=== PATIENT | male | born 1940 | race Caucasian/White ===

== ENCOUNTER → 2018-09-18 | Outpatient (CLI) | payer MEDICARE, OTHER ==
[~2018-09-18] MED LIST: BP MED
[2018-09-20 15:16] LABS: Stool Occult Bld Immuno 1 Positive (NEGATIVE); Stool Occult Bld Immuno 2 Positive (NEGATIVE); Stool Occult Bld Immuno 3 Positive (NEGATIVE)
== END | disposition home or self-care (01) ==
LOC: LAB EV 07:28 → EDSTATUS 09-19 14:39
PROVIDERS: Nurse Practitioner Family
DX: D64.9 Anemia, unspecified (principal)
CPT/HCPCS: G0328

== ENCOUNTER 2019-10-12 09:30 | Emergency (ER) | payer MEDICARE, OTHER ==
[~2019-10-12] VITALS: Ht 185.4 cm; Wt 95.2 kg
[2019-10-12 10:11] LABS: BASOPHILS ABSOLUTE AUTO 0.02 K/mm3 (0.00-0.23); BASOPHILS PERCENT AUTO 0 % (0-2); EOSINOPHILS ABSOLUTE AUTO 0.03 K/mm3 (0.00-0.68); EOSINOPHILS PERCENT AUTO 0 % (0-6); IMMATURE GRAN ABSOLUTE AUTO 0.05 K/mm3 (0.00-0.10); IMMATURE GRAN PERCENT AUTO 1 % (0-1); LYMPHOCYTES ABSOLUTE AUTO 0.75 K/mm3 (0.84-5.20); LYMPHOCYTES PERCENT AUTO 11 % (21-46); MONOCYTES ABSOLUTE AUTO 1.68 K/mm3 (0.16-1.47); MONOCYTES PERCENT AUTO 24 % (4-13); Mean Corpuscular HGB 24.5 pg (26.0-34.0); Mean Corpuscular HGB Conc 28.2 g/dL (31.5-36.5); Mean Corpuscular Volume 87 fL (80-100); Mean Platelet Volume 10.5 fL (9.1-12.4); NEUTROPHILS ABSOLUTE AUTO 4.38 K/mm3 (1.96-9.15); NEUTROPHILS PERCENT AUTO 63 % (41-73); NRBC ABSOLUTE 0.43 K/mm3 (0.00-0.02); NRBC Auto 6.2 /100 WBC (0.0-0.2); Platelet Count 325 K/mm3 (150-400); RDW Coefficient Variation 19.9 % (11.7-14.2); RDW Standard Deviation 63.1 fL (35.1-46.3); Red Blood Cell Count 1.88 M/mm3 (4.30-5.90); White Blood Cell Count 6.91 K/mm3 (4.00-11.30)
[2019-10-12 10:19] LABS: Hematocrit 16.3 % (37.0-53.0); Hemoglobin 4.6 g/dL (13.5-17.5)
[2019-10-12 10:32] LABS: Alanine Aminotransfer (ALT/SGP 215 U/L (12-78); Albumin, Blood 3.2 g/dL (3.4-5.0); Albumin/Globulin Ratio 0.8 (0.8-1.8); Alk Phos 102 U/L (50-136); Anion Gap 8 mmol/L (6-16); Aspartate Aminotrans (AST/SGOT 243 U/L (12-37); Blood Urea Nitrogen 31 mg/dL (8-24); Bun/Creatinine Ratio 31.2 (12.0-20.0); CO2, Blood 27 mmol/L (21-32); Calcium, Blood 8.5 mg/dL (8.5-10.1); Chloride, Blood 105 mmol/L (98-108); Creatinine, Blood 0.99 mg/dL (0.60-1.20); Globulin, Blood 3.9 g/dL (2.2-4.0); Glomerular Filtration Rate >60 (60-); Glucose, Blood 111 mg/dL (70-99); Potassium, Blood 3.5 mmol/L (3.5-5.5); Sodium, Blood 140 mmol/L (136-145); Total Protein, Blood 7.1 g/dL (6.4-8.2); Troponin I 0.022 ng/mL (0.000-0.040)
[2019-10-12] MEDS ORDERED: FUROSEMIDE40 MG PO (11:33)
[2019-10-12] MEDS ORDERED: ELIQUIS5 M3 PO (11:33)
[2019-10-12] MEDS ORDERED: Potassium Chlo20 ME1 PO (11:33)
[2019-10-12] MEDS ORDERED: ATORVASTATIN CA40 M1 PO (11:34)
[2019-10-12] MEDS ORDERED: METOPROLOL TART25 MG PO (11:34)
[2019-10-12] MEDS ORDERED: Hair, Skin & N1 EACH PO (11:35)
== END 2019-10-12 17:02 | disposition home or self-care (01) ==
LOC: ER 09:30
PROVIDERS: Emergency Medicine
DX: K57.90 Diverticulosis of intestine, part unspecified, without perforation or abscess without bleeding (principal); D64.9 Anemia, unspecified; Z88.0 Allergy status to penicillin; I11.0 Hypertensive heart disease with heart failure; I50.9 Heart failure, unspecified; Z79.899 Other long term (current) drug therapy; Z86.73 Personal history of transient ischemic attack (TIA), and cerebral infarction without residual deficits
CPT/HCPCS: 36415; 71046; 74177; 80053; 83880; 84484; 85025; 86850; 86900; 86901; 86923; 93005; 93010; J7030; P9016; Q9967

== ENCOUNTER 2019-11-17 10:57 | Inpatient (IN) | payer MEDICARE, OTHER ==
[~2019-11-17] VITALS: Ht 185.4 cm; Wt 97.4 kg
[~2019-11-17 10:57] MED LIST changes: +ATORVASTATIN CA40 M1 PO; +ELIQUIS5 M3 PO; +FUROSEMIDE40 MG PO; +Hair, Skin & N1 EACH PO; +METOPROLOL TART25 MG PO; +Potassium Chlo20 ME1 PO
[2019-11-17 11:46] LABS: BASOPHILS ABSOLUTE AUTO 0.01 K/mm3 (0.00-0.23); BASOPHILS PERCENT AUTO 0 % (0-2); EOSINOPHILS ABSOLUTE AUTO 0.01 K/mm3 (0.00-0.68); EOSINOPHILS PERCENT AUTO 0 % (0-6); IMMATURE GRAN ABSOLUTE AUTO 0.07 K/mm3 (0.00-0.10); IMMATURE GRAN PERCENT AUTO 1 % (0-1); LYMPHOCYTES ABSOLUTE AUTO 0.77 K/mm3 (0.84-5.20); LYMPHOCYTES PERCENT AUTO 11 % (21-46); MONOCYTES ABSOLUTE AUTO 1.04 K/mm3 (0.16-1.47); MONOCYTES PERCENT AUTO 14 % (4-13); Mean Corpuscular HGB 21.8 pg (26.0-34.0); Mean Corpuscular HGB Conc 26.6 g/dL (31.5-36.5); Mean Corpuscular Volume 82 fL (80-100); Mean Platelet Volume 9.8 fL (9.1-12.4); NEUTROPHILS ABSOLUTE AUTO 5.34 K/mm3 (1.96-9.15); NEUTROPHILS PERCENT AUTO 74 % (41-73); NRBC ABSOLUTE 0.35 K/mm3 (0.00-0.02); NRBC Auto 4.8 /100 WBC (0.0-0.2); Platelet Count 308 K/mm3 (150-400); RDW Coefficient Variation 21.9 % (11.7-14.2); RDW Standard Deviation 64.6 fL (35.1-46.3); Red Blood Cell Count 1.88 M/mm3 (4.30-5.90); White Blood Cell Count 7.24 K/mm3 (4.00-11.30)
[2019-11-17 11:49] LABS: Hematocrit 15.4 % (37.0-53.0)
[2019-11-17 11:50] LABS: Hemoglobin 4.1 g/dL (13.5-17.5)
[2019-11-17 11:53] LABS: PCO2 Arterial 40.3 mmHg (35-45); PO2 Arterial 103 mmHg (80-100); pH Blood Arterial 7.51 (7.35-7.45)
[2019-11-17 11:55] LABS: Alanine Aminotransfer (ALT/SGP 255 U/L (12-78); Albumin, Blood 2.9 g/dL (3.4-5.0); Albumin/Globulin Ratio 0.8 (0.8-1.8); Alk Phos 113 U/L (50-136); Anion Gap 8 mmol/L (6-16); Aspartate Aminotrans (AST/SGOT 202 U/L (12-37); Bilirubin, Total 2.2 mg/dL (0.1-1.0); Blood Urea Nitrogen 25 mg/dL (8-24); Bun/Creatinine Ratio 25.2 (12.0-20.0); CO2, Blood 31 mmol/L (21-32); Calcium, Blood 8.6 mg/dL (8.5-10.1); Chloride, Blood 108 mmol/L (98-108); Creatinine, Blood 0.99 mg/dL (0.60-1.20); Globulin, Blood 3.5 g/dL (2.2-4.0); Glomerular Filtration Rate >60 (60-); Glucose, Blood 107 mg/dL (70-99); Potassium, Blood 2.9 mmol/L (3.5-5.5); Sodium, Blood 147 mmol/L (136-145); Total Protein, Blood 6.4 g/dL (6.4-8.2); Troponin I 0.086 ng/mL (0.000-0.040)
[2019-11-17 11:56] LABS: International Normalized Ratio 1.51; Prothrombin Time Results 15.8 Sec (9.7-11.5)
[2019-11-17 13:22] LABS: Adenovirus Not Detected (NOT DETECT); Coronavirus 229E Not Detected (NOT DETECT); Coronavirus HKU1 Not Detected (NOT DETECT); Coronavirus NL63 Not Detected (NOT DETECT)
[2019-11-17 13:23] LABS: Bordetella pertussis Not Detected (NOT DETECT); Chlamydophila pneumoniae Not Detected (NOT DETECT); Coronavirus OC43 Not Detected (NOT DETECT); Human Metapneumovirus Not Detected (NOT DETECT); Human Rhinovirus/Enterovirus Not Detected (NOT DETECT); Influenza A/2009-H1 Not Detected (NOT DETECT); Influenza A/H1 Not Detected (NOT DETECT); Influenza A/H3 Not Detected (NOT DETECT); Influenza B Not Detected (NOT DETECT); Mycoplasma pneumoniae Not Detected (NOT DETECT); Parainfluenza Virus 1 Not Detected (NOT DETECT); Parainfluenza Virus 2 Not Detected (NOT DETECT); Parainfluenza Virus 3 Not Detected (NOT DETECT); Parainfluenza Virus 4 Not Detected (NOT DETECT); Respiratory Syncytial Virus Not Detected (NOT DETECT)
[2019-11-17 14:16] LABS: IMMATURE RETIC FRACTION 50.6 % (2.3-16.0); RETIC HGB EQUIVALENT 17.6 pg (28.20-36.60); RETICULOCYTE ABSOLUTE 0.02 M/mm3 (0.0200-0.1100); RETICULOCYTE COUNT PERCENT 1.07 % (0.50-2.50)
--- NOTE | 2019-11-17 18:49 | NUR ---
1715... PT ADMITTED TO ICU-2 VIA STRETCHER WITH MOD SOB, PALE, BUT VS ADIQUATE. PT IS ON 5L NC AND TOLERATING WELL. DR PABLO NOT CONSULTED BUT HAD TALKED WITH DR KEANE AND WILL HOLD KCL FOR NOW AND [facility] AND H/H TO FOLLOW AFTER 2 UNITS OF PRBC'S ARE COMPLETE. PT HAS HAD NO STOOLING AND DENIES N/V. BLOOD IS INFUSING AND NS AT 75ML STARTED. A-FIB RVR AT 130-155 RATE AND PT DENIES C.P. OR DISTRESS.
--- NOTE | 2019-11-17 19:00 | NUR ---
ASSUMED CARE NOTE: ASSUMED CARE OF PT @ 1900, RECEVIED REPORT FROM MAX ARREDONDO. PT IS ALERT AND ORIENTEDX2. PT IS A POOR HISTORIAN, IS UNABLE TO RECALL RECENT EVENTS. PT IS ON 2L OF O2 VIA NC, SPO2 ABOVE 90%. LUNG SOUNDS COARSE T/O, PT HAS A PRODUCTIVE COUGH, YELLOW THIN SPUTUM. PT IS IN AFIB WITH HR BETWEEN, 110-130. PT DENIES ANY CHEST PAIN OR SOB AT THIS TIME. PT IS AFEBRILE. ACTIVE BOWEL TONES HEARD IN ALL QUADRANTS. ATTENDS IN [place]. BLE +4 EDEMA. WILL CONTINUE TO MONITOR PT T/O SHIFT. BED AT LOWEST LEVEL, AND CALL LIGHT WITHIN REACH
[2019-11-17 21:30] LABS: Hematocrit 19.2 % (37.0-53.0)
[2019-11-17 21:32] LABS: Hemoglobin 5.5 g/dL (13.5-17.5)
[2019-11-17 21:46] LABS: Anion Gap 5 mmol/L (6-16); Blood Urea Nitrogen 23 mg/dL (8-24); Bun/Creatinine Ratio 25.1 (12.0-20.0); CO2, Blood 32 mmol/L (21-32); Calcium, Blood 8.4 mg/dL (8.5-10.1); Chloride, Blood 111 mmol/L (98-108); Creatinine, Blood 0.92 mg/dL (0.60-1.20); Glomerular Filtration Rate >60 (60-); Glucose, Blood 107 mg/dL (70-99); Potassium, Blood 3.5 mmol/L (3.5-5.5); Sodium, Blood 148 mmol/L (136-145)
[2019-11-17 21:48] LABS: Percent Saturation 50.7 % (20.0-50.0)
--- NOTE | 2019-11-17 23:01 | NUR ---
UPDATE: SPOKE TO SHREYA, HOSPITALIST, REGARDING IV FLUIDS AND COARSE LUNGS. ORDERS TO DC FLUIDS AND TO GIVE LASIX ORDERED.
[2019-11-17 23:08] LABS: Stool Occult Blood Guaiac 1 Pos (Neg)
[2019-11-18 03:40] LABS: BASOPHILS ABSOLUTE AUTO 0.02 K/mm3 (0.00-0.23); BASOPHILS PERCENT AUTO 0 % (0-2); EOSINOPHILS PERCENT AUTO 0 % (0-6); Hematocrit 25.8 % (37.0-53.0); Hemoglobin 7.8 g/dL (13.5-17.5); IMMATURE GRAN ABSOLUTE AUTO 0.08 K/mm3 (0.00-0.10); IMMATURE GRAN PERCENT AUTO 1 % (0-1); LYMPHOCYTES ABSOLUTE AUTO 0.34 K/mm3 (0.84-5.20); LYMPHOCYTES PERCENT AUTO 4 % (21-46); MONOCYTES ABSOLUTE AUTO 0.17 K/mm3 (0.16-1.47); MONOCYTES PERCENT AUTO 2 % (4-13); Mean Corpuscular HGB 25.7 pg (26.0-34.0); Mean Corpuscular HGB Conc 30.2 g/dL (31.5-36.5); Mean Corpuscular Volume 85 fL (80-100); Mean Platelet Volume 10.5 fL (9.1-12.4); NEUTROPHILS ABSOLUTE AUTO 8.83 K/mm3 (1.96-9.15); NEUTROPHILS PERCENT AUTO 94 % (41-73); NRBC ABSOLUTE 0.27 K/mm3 (0.00-0.02); NRBC Auto 2.9 /100 WBC (0.0-0.2); Platelet Count 272 K/mm3 (150-400); RDW Coefficient Variation 18.5 % (11.7-14.2); RDW Standard Deviation 55.8 fL (35.1-46.3); Red Blood Cell Count 3.04 M/mm3 (4.30-5.90); White Blood Cell Count 9.44 K/mm3 (4.00-11.30)
--- NOTE | 2019-11-18 03:55 | NUR ---
UPDATE: ADMINISTERED LASIX, CONDOM CATH IN PLACE. BLOOD PRESSURE STABLE. PT ENCOURAGED TO SLEEP. BED AT LOWEST LEVEL, CALL LIGHT WITHIN REACH.
[2019-11-18 04:02] LABS: Alanine Aminotransfer (ALT/SGP 231 U/L (12-78); Albumin/Globulin Ratio 0.8 (0.8-1.8); Alk Phos 121 U/L (50-136); Anion Gap 4 mmol/L (6-16); Aspartate Aminotrans (AST/SGOT 165 U/L (12-37); Bilirubin, Total 4.4 mg/dL (0.1-1.0); Blood Urea Nitrogen 24 mg/dL (8-24); Bun/Creatinine Ratio 26.3 (12.0-20.0); CO2, Blood 33 mmol/L (21-32); Calcium, Blood 8.5 mg/dL (8.5-10.1); Chloride, Blood 110 mmol/L (98-108); Creatinine, Blood 0.91 mg/dL (0.60-1.20); Globulin, Blood 3.6 g/dL (2.2-4.0); Glomerular Filtration Rate >60 (60-); Glucose, Blood 120 mg/dL (70-99); Potassium, Blood 3.8 mmol/L (3.5-5.5); Sodium, Blood 147 mmol/L (136-145); Total Protein, Blood 6.6 g/dL (6.4-8.2)
--- NOTE | 2019-11-18 06:28 | NUR ---
SHIFT SUMMARY: SEE PREVIOUS NOTES. PT CONTINUES TO BE ALERT AND ORIENTEDX2. PT WAS ON RA FOR 30MINTUES, HOWEVER PT'S SPO2 DECREASED TO 86% PT WAS THEN PLACED BACK ON 2L OF O2 VIA NC, SPO2 MAINTAINED ABOVE 90%. VITALS STABLE, PT IS LUNG SOUNDS CONTINUE TO BE COARSE. PT HAD GOOD URINE OUTPUT, 1000MLS, AND TWO LARGE INCONTINENT VOIDS. PT CONDOM CATH WAS REPLACED, TO MONITOR I&O, URINE IS EDWINA. WILL CONTINUE TO MONITOR PT UNTIL REPORT IS GIVEN TO ONCOMING SHIFT.
[2019-11-18 09:28] LABS: Hematocrit 27.8 % (37.0-53.0); Hemoglobin 8.4 g/dL (13.5-17.5)
--- NOTE | 2019-11-18 10:31 | NUR ---
Echocardiogram completed.
--- NOTE | 2019-11-18 11:16 | NUR ---
0800 NOTE... PT ALERT AND COOP, DIRECTABLE BUT IS CONFUSED. CONDOM CATH PLACED AND URINE ORANGE NOTED. PT DENIES SOB BUT IS ON O2 AT 3L AND HAS L BASE CRACKLES. VS NOTED AND SEE LATER VS, DR KEANE AWARE. REPORT CALLED TO FAMILY AT APPROX 1100.
--- NOTE | 2019-11-18 13:42 | NUR ---
SEE VS. PT HAS BEEN SL HYPOTENSIVE AND IS SLOWLY COMMING UP NOTED AFTER ALBUMIN. PT REMAINS ASYMPOTMTIC.
[2019-11-18 15:20] LABS: Hematocrit 25.9 % (37.0-53.0); Hemoglobin 7.7 g/dL (13.5-17.5)
--- NOTE | 2019-11-18 18:28 | NUR ---
PT HAS BEEN AWAKE MOST OF THE DAY AND REMAINS DIRECTABLE AND MARGINALLY CONFUSED AT TIMES. PT L FA IV HAS INFILTRATED AND WAS DIRECTED THAT NOC WILL START NEW SITE. PT CONDOM CATH REMAINS INTACT AND OUTPUT NOTED. PT STATUS OF DNR AND PCU ARE NOTED.
--- NOTE | 2019-11-18 20:00 | NUR ---
ASSUMED CARE OF PT AT 1915. REPORT RECEIVED AT BEDSIDE. PT NOTED TO BE CONFUSED. IS ABLE TO MAINTAIN CONVERSATIONS ABOUT HIS CAREER CHOICE, TIME. WHEN ASKED IF HE KNEW WHERE HE IS AT THIS TIME, PT THOUGHT HE WAS IN [place]. WHEN INSTRUCTED HE WAS IN [place], HE STATES, "OH! THAT'S RIGHT". WHEN ASKED IF HE KNEW WHICH CITY IN [place] HE IS IN, HE COULD NOT RECALL. BED ALARM ON FOR PT SAFETY. WILL REVIEW CHART AND PLAN OF CARE FOR THIS PT.
--- NOTE | 2019-11-18 23:00 | NUR ---
PT REMAINS > 90 PERCENT SATURATED WHILE ON 3-4 LITERS PER NASAL CANNULA. PT AWAKENS AT TIMES CONFUSED. PULLS AT LINES AND CONDOM CATHETER. NEEDS TO BE REDIRECTED. BELIEVES THAT HE IS IN [place]. NEEDS TO BE REORIENTED THAT HE IS IN THE HOSPITAL.
[2019-11-19 03:51] LABS: BASOPHILS ABSOLUTE AUTO 0.02 K/mm3 (0.00-0.23); BASOPHILS PERCENT AUTO 0 % (0-2); EOSINOPHILS PERCENT AUTO 0 % (0-6); Hematocrit 25.4 % (37.0-53.0); Hemoglobin 7.7 g/dL (13.5-17.5); IMMATURE GRAN ABSOLUTE AUTO 0.15 K/mm3 (0.00-0.10); IMMATURE GRAN PERCENT AUTO 1 % (0-1); LYMPHOCYTES ABSOLUTE AUTO 0.56 K/mm3 (0.84-5.20); LYMPHOCYTES PERCENT AUTO 4 % (21-46); MONOCYTES ABSOLUTE AUTO 1.04 K/mm3 (0.16-1.47); MONOCYTES PERCENT AUTO 8 % (4-13); Mean Corpuscular HGB 25.7 pg (26.0-34.0); Mean Corpuscular HGB Conc 30.3 g/dL (31.5-36.5); Mean Corpuscular Volume 85 fL (80-100); Mean Platelet Volume 10.1 fL (9.1-12.4); NEUTROPHILS ABSOLUTE AUTO 11.56 K/mm3 (1.96-9.15); NEUTROPHILS PERCENT AUTO 87 % (41-73); NRBC ABSOLUTE 0.32 K/mm3 (0.00-0.02); NRBC Auto 2.4 /100 WBC (0.0-0.2); Platelet Count 212 K/mm3 (150-400); RDW Coefficient Variation 19.3 % (11.7-14.2); RDW Standard Deviation 58.7 fL (35.1-46.3); White Blood Cell Count 13.33 K/mm3 (4.00-11.30)
[2019-11-19 04:23] LABS: Alanine Aminotransfer (ALT/SGP 151 U/L (12-78); Alk Phos 106 U/L (50-136); Anion Gap 4 mmol/L (6-16); Aspartate Aminotrans (AST/SGOT 80 U/L (12-37); Bilirubin, Total 2.6 mg/dL (0.1-1.0); Blood Urea Nitrogen 27 mg/dL (8-24); Bun/Creatinine Ratio 29.3 (12.0-20.0); CO2, Blood 35 mmol/L (21-32); Calcium, Blood 8.2 mg/dL (8.5-10.1); Chloride, Blood 107 mmol/L (98-108); Creatinine, Blood 0.92 mg/dL (0.60-1.20); Glomerular Filtration Rate >60 (60-); Glucose, Blood 110 mg/dL (70-99); Potassium, Blood 2.8 mmol/L (3.5-5.5); Sodium, Blood 146 mmol/L (136-145)
--- NOTE | 2019-11-19 06:26 | NUR ---
PT HAS PULLED OFF HIS OXYGEN MULTIPLE TIMES THIS NIGHT. INCONTINENT TO URINE. NO S/S GI BLEED NOTED. AM LABS REVIEW REVEALS NO DROP IN H/H FROM PREVIOUS. BED ALARM HAS BEEN TURNED ON BED FOR PT SAFETY. WILL CONTINUE TO MONITOR PT, AND WILL REPORT OFF TO ONCOMING RN.
--- NOTE | 2019-11-19 08:49 | NUR ---
CARE ASSUMED CARE AND REPORT ASSUMED FROM ALBAN SANTANA. PT AWAKE AND SITTING UP IN BED. DENIES PAIN. HE IS CONFUSED, ONLY ALERT TO SELF, AND REPEATEDLY STATING HE WANTS TO LEAVE THIS PLACE. CURRENTLY IN AFIB, HR 90S. LUNG SOUNDS COARSE AND WET THROUGHOUT, PT HAS PRODUCTIVE COUGH WITH STRONG COUGH RELFEX. TOLERATING 2L NC, SPO2 94%. POTASSIUM REPLACEMENT INFUSING. BP WNL. PT REFUSED BREAKFAST THIS AM. DNR BAND ON WRIST. SON UPDATED. WILL CONTINUE TO MONITOR.
[2019-11-19 11:31] LABS: Source, Urine Catheter
--- NOTE | 2019-11-19 11:38 | NUR ---
REASSESSMENT GREEN CATHETER INSERTED SINCE PT HAS TO VOID OFTEN AND QUICKLY BECOMES SHORT OF BREATH WITH ANY EXERTION. SECOND DOSE OF LASIX 20 MG IVP GIVEN. VSS. REMAINS IN NSR, HR 90-110. BP WNL. SITTING UP WATCHING TV AND DRINKING MILKSHAKE. WILL CONTINUE TO MONITOR.
[2019-11-19 11:45] LABS: Appearance, Urine Clear (Clear); Bilirubin, Urine Neg (Neg); Blood, Urine 2+ (Neg); Color, Urine Yellow (P-Yellow); Glucose Qualitative, Urine Neg (Neg); Ketones, Urine Neg (Neg); Leukocyte Esterase, Urine Neg (Neg); Nitrite, Urine Neg (Neg); Protein, Urine Neg (Neg); Urobilinogen, Urine NORM (Normal)
--- NOTE | 2019-11-19 12:03 | NUR ---
REASSESSMENT HEPARIN GTT STARTED AND BOLUS GIVEN WITH INFUSION. VSS. L GROIN SITE STABLE, CLEAN AND DRY. PT SITTING UP 30 DEGREES. AWAITING LUNCH TRAY. DAUGHTER UPDATED ON PHONE. WILL CONTINUE TO MONITOR.
[2019-11-19 12:36] LABS: White Blood Cells, Urine 0-2 /hpf (0-5)
[2019-11-19 12:37] LABS: Bacteria Not Seen /hpf; Squamous Epithelial Cells Not Seen /hpf (Few)
--- NOTE | 2019-11-19 13:10 | NUR ---
UPDATE ON RED TAG STUDY PT REQUIRED TO LAY FLAT FOR AT LEAST 1 HOUR DURING RED TAG STUDY. DUE TO FLUID STATUS AND SOB, PT UNABLE TO LAY BELOW 15 DEGREES FOR MORE THAN FEW MINUTES. LUNG SOUNDS COARSE AND WET THROUGHOUT WITH AUDIBLE GURGLING SOUNDS. DUE TO RISK OF RESP DISTRESS AND BEING THAT PT DNR, PT WILL NOT BE ABLE TO SUSTAIN LYING FLAT FOR 1 HOUR. DISCUSSED WITH MD ARANDA; CURRENT PLAN IS TO PERFORM STUDY WHEN ABLE; NO FURTHER ORDERS. WILL NOTIFY MD TINOCO.
--- NOTE | 2019-11-19 16:49 | NUR ---
REASSESSMENT PT WAXES AND WANES WITH EPISODES OF RESTLESSNESS VERSUS SLEEPING. NO S/S PAIN. CURRENTLY 3L NC. LUNG SOUNDS REMAIN COARSE AND WET THROUGHOUT WITH PRODUCTIVE COUGH. PT HAS DARK DARDEN SPUTUM. AFEBRILE. REMAINS IN AFIB. WILL CONTINUE TO MONITOR.
--- NOTE | 2019-11-19 18:37 | NUR ---
SHIFT SUMMARY UNABLE TO COMPLETE RED TAG STUDY DURING SHIFT DUE TO INABILITY TO LAY PT FLAT FOR AN HOUR. PT DIDNT EAT MUCH BUT DID AGREE TO EAT SOME DINNER TONGIHT. HE RECEIVED BEDBATH AND LINEN CHANGE, HAD LARGE BOWEL MOVEMENT AND THEN SAT UP NI CHAIR FOR AWHILE. HE THEN GOT UP AND OUT OF BED AND USED BEDSIDE COMMODE AGAIN. PT WAS ABLE TO STAND AND AMBULATE WITH 1 PERSON ASSIST. BOWEL MOVEMENTS WERE LOOSE, LIQUIDY AND BLACK/BROWN IN COLOR; OLD APPEARING BLOOD. BP WNL THROUGHOUT SHIFT. PT AFEBRILE. HE IS NOW ATTEMPTING TO SLEEP IN BED. WILL GIVE BEDSIDE, HANDOFF REPORT TO NOC RN.
--- NOTE | 2019-11-19 20:40 | NUR ---
ASSUMED PT CARE FROM MAX WONG AT 1900 PT RESTING IN BED. ALERT AND ORIENTED TO SELF AND PLACE; ABLE TO FOLLOW SIMPLE COMMANDS; HOWEVER PT IS VERY CONFUSED AND FORGETFUL AT BASELINE. VERY IMPULSIVE. DOES NOT USE CALL LIGHT FOR ASSIST. HIGH FALL RISK; BED ALARM IN PLACE. PT REQUIRES PROMPT ASSISTANCE WHEN GETTING UP PT GENERALLY HAS TO USE THE COMMODE TO HAVE A BM. PT HAS BEEN HAVING FREQUENT, LOOSE BM'S TODAY PER REPORT. PT HAS BEEN RECEIVING STOOL SOFTENERS THE PAST TWO DAYS; HELD TONIGHTS DOSE. PT IS CURRENTLY ON 7L OF OXYGEN VIA NC WITH BIOX MID 90'S. HOWEVER, PT IS VERY RESTLESS AND CONTINUES TO PULL OFF LINES/CORDS AND HEART MONITOR. THEREFORE, WILL CONTINUE TO MONITOR OXYGEN STATUS AND TITRATE ACCORDINGLY. AT CHANGE OF SHIFT PT WAS ON 4L VIA NC; HOWEVER, PT IS ALSO A MOUTH BREATHER. LUNG SOUNDS ARE VERY TIGHT/DIMINISHED T/O. DRY, NON-PRODUCTIVE COUGH. PT HAS BEEN AFIB WITH RVR AND OCCASIONAL PVC'S NOTED; HR FLUCTUATES FROM 110'S-130'S AND UP TO 150'S-160'S WITH EXERTION. PT BECOMES VERY SOB WITH MINIMAL EXERTION. STANDBY ASSIST TO BSC FOR SAFETY. WILL CONTINUE FREQUENT VISUAL CHECKS FOR SAFETY.
--- NOTE | 2019-11-20 00:25 | NUR ---
REASSESSMENT PT CONTINUES TO BE RESTLESS AND ATTEMPTING TO GET OUT OF BED. BILATERAL SOFT WRIST RESTRAINTS APPLIED AROUND 0 D/T PT PULLING OFF HEART MONITOR AND OXYGEN. CALL OUT TO DR. TITUS IN REGARDS FOR A SLEEP AID PT CONTINUES TO GET OUT OF BED AND REMAINS RESTLESS. NEW ORDERS FOR HALIDOL 2-3MG IV Q6PRN
[2019-11-20 03:07] LABS: HBSAG SCREEN Negative (Negative); HEP A AB, IGM Negative (Negative); HEP B CORE AB, IGM Negative (Negative); HEP C VIRUS AB <0.1 (0.0-0.9)
[2019-11-20 03:55] LABS: BASOPHILS ABSOLUTE AUTO 0.04 K/mm3 (0.00-0.23); BASOPHILS PERCENT AUTO 0 % (0-2); EOSINOPHILS ABSOLUTE AUTO 0.02 K/mm3 (0.00-0.68); EOSINOPHILS PERCENT AUTO 0 % (0-6); Hemoglobin 8.4 g/dL (13.5-17.5); IMMATURE GRAN PERCENT AUTO 1 % (0-1); LYMPHOCYTES PERCENT AUTO 6 % (21-46); MONOCYTES ABSOLUTE AUTO 1.28 K/mm3 (0.16-1.47); MONOCYTES PERCENT AUTO 8 % (4-13); Mean Corpuscular HGB 25.2 pg (26.0-34.0); Mean Corpuscular Volume 87 fL (80-100); Mean Platelet Volume 10.1 fL (9.1-12.4); NEUTROPHILS PERCENT AUTO 85 % (41-73); NRBC ABSOLUTE 0.47 K/mm3 (0.00-0.02); NRBC Auto 2.8 /100 WBC (0.0-0.2); Platelet Count 196 K/mm3 (150-400); RDW Standard Deviation 62.3 fL (35.1-46.3); Red Blood Cell Count 3.33 M/mm3 (4.30-5.90); White Blood Cell Count 16.84 K/mm3 (4.00-11.30)
[2019-11-20 04:23] LABS: Alanine Aminotransfer (ALT/SGP 132 U/L (12-78); Albumin, Blood 2.9 g/dL (3.4-5.0); Albumin/Globulin Ratio 0.9 (0.8-1.8); Alk Phos 118 U/L (50-136); Anion Gap 4 mmol/L (6-16); Aspartate Aminotrans (AST/SGOT 67 U/L (12-37); Bilirubin, Total 1.8 mg/dL (0.1-1.0); Blood Urea Nitrogen 18 mg/dL (8-24); Bun/Creatinine Ratio 22.9 (12.0-20.0); CO2, Blood 39 mmol/L (21-32); Calcium, Blood 8.2 mg/dL (8.5-10.1); Chloride, Blood 104 mmol/L (98-108); Creatinine, Blood 0.79 mg/dL (0.60-1.20); Globulin, Blood 3.2 g/dL (2.2-4.0); Glomerular Filtration Rate >60 (60-); Glucose, Blood 98 mg/dL (70-99); Potassium, Blood 2.5 mmol/L (3.5-5.5); Sodium, Blood 147 mmol/L (136-145); Total Protein, Blood 6.1 g/dL (6.4-8.2)
--- NOTE | 2019-11-20 05:50 | NUR ---
END OF SHIFT SUMMARY PT HAS REMAINED CONFUSED AND FORGETFUL WITH REPEATED ATTEMPTS TO GET OUT OF BED AND PULL OFF VITAL LINES/CORDS. PT HAS BEEN MEDICATED WITH A TOTAL OF 3MG OF HALDOL, WHICH HAS BEEN EFFECTIVE FOR PT. BILATERAL SOFT WRIST RESTRAINTS REMAIN IN PLACE TO PREVENT PT FROM PULLING OFF LINES/CORDS. PT HAS BEEN IN AFIB; HR IS CURRENTLY 70-80'S WHILE SLEEPING. OXYGEN AT 5L VIA NC; WITH DRY, NON-PRODUCTIVE COUGH. LUNG SOUNDS REMAIN TIGHT/DIMINISHED T/O ALL LOBES. GREEN CATHETER REMAINS PATENT AND DRAINING DARK EDWINA COLORED URINE TO GRAVITY. POTASSIUM LOW THIS MORNING AT 2.5; ORDERS TO REPLACE WITH 40MEQ'S IV X1. WILL PASS ON TO DAY RN TO ADDRESS WITH HOSPITALIST IN REGARDS TO LASIX 40MG BID WITH NO POTASSIUM REPLACEMENT ORDERED. CALL LIGHT WITHIN REACH. BED ALARM REMAINS SET D/T HIGH FALL RISK. WILL CONTINUE TO MONITOR UNTIL REPORT IS HANDED OFF TO ONCOMING RN.
--- NOTE | 2019-11-20 11:40 | NUR ---
Pal Care case conference with RN, , son, Care Managers - I was notified by nursing that family would like comfort care and hospice to be arranged. I contacted son, Bhavik, who I have been speaking with this week re: goals of care and advanced care planning. POLST form was completed 11/18/19, based on an unsigned POLST that pt had done recently and planned to take to new PCP at [facility]. Bhavik (son) reports that his is on the phone with [facility] hospice, requesting their services. Son states he and and his live in pt's home. I reviewed the intermittent visit nature of hospice services, need for family or hired caregivers, hospice services, benefits and covered items. Son verbalizes good understanding of hospice services and also states they plan to hire a friend who works as a cg to assist and for respite. He reports he is awaiting a call from a dc demand planner to assist with hospice set up. I called Dr Rosas to report family request and my conversation with family. plans to call son. Report given to Anitra MCCORD & order placed for soc services to assist with d/c planning. Pt has asked staff repeatedly to let him go home. He is restless in bed. As I was leaving the unit, RN in room with pt and found that he had pulled his iv line out. Will remain available to assist with advanced care planning and s/s management.
--- NOTE | 2019-11-20 12:00 | NUR ---
CALL PLACED TO DR BOURGEOIS Pt pulled out peripheral IV. This RN placed call to Dr Bourgeois because family would like for pt to transition to comfort care. Palliative care RN, Edith, has been talking to provider and family. Dr Bourgeois stated he will call family to touch base together they will reach a decision if pt is transitioning to comfort care or not. Provider aware that IV meds cannot be given at this time. Provider states not to start IV until he speaks to the pt's family.
--- NOTE | 2019-11-20 13:00 | NUR ---
UPDATE Provider in unit to assess patient. Provider spoke to family and plan is to continue with gentle medical care at this time. Plan to place IV.
[2019-11-20 13:14] LABS: Albumin, Blood 2.7 g/dL (3.4-5.0); Anion Gap 2 mmol/L (6-16); Blood Urea Nitrogen 15 mg/dL (8-24); Bun/Creatinine Ratio 25.1 (12.0-20.0); CO2, Blood 39 mmol/L (21-32); Calcium, Blood 8.3 mg/dL (8.5-10.1); Chloride, Blood 107 mmol/L (98-108); Glomerular Filtration Rate >60 (60-); Glucose, Blood 98 mg/dL (70-99); Magnesium, Blood 1.8 mg/dL (1.6-2.4); Phosphorus, Blood 1.6 mg/dL (2.5-4.9); Potassium, Blood 2.9 mmol/L (3.5-5.5); Sodium, Blood 148 mmol/L (136-145)
--- NOTE | 2019-11-20 17:23 | NUR ---
SUMMARY Pt is medical floor status with telemetry. Pt A&O x 2. Answers questions appropriately. Follows commands. Pt on 4 LPM NC. Pt has loose, productive cough with copious amounts of thick green sputum. Lungs dim t/o on auscultation. Pt's pending COVID-19 test had an insufficient specimen. New nasopharyngeal specimen sent for COVID-19. Myers catheter in place for strict measurement of fluid intake and output. Pt sitting up in chair at this time. Will continue to closely monitor until care handoff and bedside report with oncoming RN.
--- NOTE | 2019-11-20 22:54 | NUR ---
ASSUMED PT CARE FROM MAX GALVEZ AT 1915 PT REMAINS CONFUSED AND FORGETFUL. NOT IMPULSIVE; HOWEVER, BED ALARM REMAINS ON FOR SAFETY. PT IS ABLE TO FOLLOW COMMANDS AND IS VERY PLEASANT AND COOPERATIVE WITH CARES. REMAINS ON ENHANCED ISOLATION PRECAUTIONS FOR RULE OUT COVID. PT IS CURRENTLY ON 4L OF OXYGEN VIA NC; WITH BIOX MID 90'S. PT REMAINS AFIB WITH HR 90-120'S. BP'S STABLE; SEE FLOWSHEET. PT C/O 04/28 BACK PAIN; MEDICATED WITH TYLENOL PER ORDERS AND REPOSITIONED. ASSISTED WITH FLUTTER VALVE TO HELP BRING UP SECRETIONS; PT EFFECTIVELY COUGHED UP THICK, GREEN MUCUS PLUG. PT IS CURRENTLY SLEEPING. WILL CONTINUE FREQUENT VISUAL CHECKS FOR SAFETY.
[2019-11-21 03:35] LABS: BASOPHILS ABSOLUTE AUTO 0.02 K/mm3 (0.00-0.23); BASOPHILS PERCENT AUTO 0 % (0-2); EOSINOPHILS ABSOLUTE AUTO 0.12 K/mm3 (0.00-0.68); EOSINOPHILS PERCENT AUTO 1 % (0-6); Hematocrit 25.6 % (37.0-53.0); Hemoglobin 7.4 g/dL (13.5-17.5); IMMATURE GRAN ABSOLUTE AUTO 0.37 K/mm3 (0.00-0.10); IMMATURE GRAN PERCENT AUTO 4 % (0-1); LYMPHOCYTES ABSOLUTE AUTO 0.73 K/mm3 (0.84-5.20); LYMPHOCYTES PERCENT AUTO 9 % (21-46); MONOCYTES ABSOLUTE AUTO 0.74 K/mm3 (0.16-1.47); MONOCYTES PERCENT AUTO 9 % (4-13); Mean Corpuscular HGB 25.5 pg (26.0-34.0); Mean Corpuscular HGB Conc 28.9 g/dL (31.5-36.5); Mean Corpuscular Volume 88 fL (80-100); Mean Platelet Volume 10.8 fL (9.1-12.4); NEUTROPHILS ABSOLUTE AUTO 6.43 K/mm3 (1.96-9.15); NEUTROPHILS PERCENT AUTO 77 % (41-73); NRBC ABSOLUTE 0.53 K/mm3 (0.00-0.02); NRBC Auto 6.3 /100 WBC (0.0-0.2); Platelet Count 168 K/mm3 (150-400); RDW Standard Deviation 66.5 fL (35.1-46.3); White Blood Cell Count 8.41 K/mm3 (4.00-11.30)
[2019-11-21 03:56] LABS: Alanine Aminotransfer (ALT/SGP 100 U/L (12-78); Albumin, Blood 2.4 g/dL (3.4-5.0); Albumin/Globulin Ratio 0.8 (0.8-1.8); Alk Phos 108 U/L (50-136); Anion Gap 2 mmol/L (6-16); Aspartate Aminotrans (AST/SGOT 50 U/L (12-37); Bilirubin, Total 1.1 mg/dL (0.1-1.0); Blood Urea Nitrogen 17 mg/dL (8-24); Bun/Creatinine Ratio 18.9 (12.0-20.0); CO2, Blood 39 mmol/L (21-32); Calcium, Blood 8.2 mg/dL (8.5-10.1); Chloride, Blood 107 mmol/L (98-108); Globulin, Blood 2.9 g/dL (2.2-4.0); Glomerular Filtration Rate >60 (60-); Glucose, Blood 103 mg/dL (70-99); Magnesium, Blood 1.8 mg/dL (1.6-2.4); Sodium, Blood 148 mmol/L (136-145); Total Protein, Blood 5.3 g/dL (6.4-8.2); Troponin I 0.046 ng/mL (0.000-0.040)
--- NOTE | 2019-11-21 05:05 | NUR ---
END OF SHIFT SUMMARY PT HAS SLEPT MOST OF SHIFT; WAKENS EASILY. PT REMAINS CONFUSED AND FORGETFUL; HOWEVER, VERY PLEASANT AND COOPERATIVE WITH CARES. NOT PULLING AT LINES/CORDS THIS SHIFT. OXYGEN IS AT 4L VIA NC. PT HAS NONPRODUCTIVE COUGH UNLESS HE USES HIS FLUTTER VALVE IN WHICH HE CAN PRODUCE MODERATE AMOUNTS OF THICK GREEN SPUTUM. LUNG SOUNDS VARY FROM COARSE TO DIMINISHED T/O. PT HAS BEEN IN AFIB WITH HR 80-120'S. GREEN CATH REMAINS PATENT AND DRAINING DARK, YELLOW URINE TO GRAVITY. PT ABLE TO REPOSITION SELF IN BED. WILL CONTINUE TO MONITOR UNTIL REPORT IS HANDED OFF TO ONCOMING RN.
--- NOTE | 2019-11-21 08:58 | NUR ---
DR BOURGEOIS IN TO SEE PT Discussed drop in hemoglobin. Discussed absence of melena or hematochezia. Discussed BID suppository. Provider stated this may be discontinued. Discussed hypokalemia. Provider states plan to adjust medications. Provider states for lopes catheter to be removed today.
--- NOTE | 2019-11-21 18:24 | NUR ---
SUMMARY Pt A&O x 2 for entire shift. Pt knows year but does not know exact month or date. Pt follows directions well. Verbalizes needs. Answers all questions appropriately. Pt OOB for each meal. Pt has excellent appetite. Pt mobilizes with one person assist. Calls appropriately. Bed and tab alarms utilized but pt has not gotten up without staff present in room. Pt on 2 LPM NC for entire shift. Pt medical floor status with telemetry. Pt has not been OOB this shift. Myers catheter removed. Pt has not voided urine since. Powerglide to JENNIFER for meds and fluids. COVID specimen has not yet resulted. Pt remains in droplet isolation. Will continue to closely monitor pt until care handoff and bedside report with oncoming RN.
--- NOTE | 2019-11-21 19:28 | NUR ---
ASSUMED PT CARE FROM MAX GALVEZ AT 1900 PT RESTING IN BED. 3L OF OXYGEN VIA NC. ALERT AND ABLE TO MAKE NEEDS KNOWN; REMAINS FORGETFUL AT TIMES. HOWEVER, REMAIN APPROPRIATE WITH ASKING FOR ASSIST AND NOT BEING IMPULSIVE GETTING OUT OF BED. GREEN CATHETER RECENTLY REMOVED BY DAY RN. PT HAS VOIDED X1; CONTINENT; HOWEVER, PT UNABLE TO WAIT FOR PPE DONNING AND VOIDED IN ATTENDS. URINAL PLACED AT BEDSIDE. WHEEZING NOTED ON EXPIRATION T/O ALL LOBES. FLUTTER VALVE EXERCISE PERFORMED AND PT ABLE TO PRODUCE A MODERATE AMOUNT OF THICK GREEN/DARDEN SPUTUM. PT REMAINS IN AFIB WITH HR 90-110'S; INCREASES WITH EXERTION. NS WITH KCL 20MEQ INFUSING AT 50MLS/HR VIA POWERGLIDE TO [place]. EDEMA HAS DECREASED SINCE YESTERDAY; +1 TO BILATERAL ANKLES/FEET. DEPENDENT TO BUE'S. CALL LIGHT WITHIN REACH. BEDSIDE REPORT GIVEN.
--- NOTE | 2019-11-21 21:14 | NUR ---
SCD'S PLACED PT IS NO LONGER HIGH OF A RISK FOR FALLS D/T PT NOT BEING IMPULSIVE AND TRYING TO EXIT BED. THEREFORE, PLACED SCD'S R/T PROPHYLAXIS. ALSO PLACED CONDOM CATH D/T PT BEING INCONTINENT WITH FREQUENT URINATION SECONDARY TO LASIX. NONETHELESS, PT REMAINS ON ENHANCED PRECAUTIONS SECONDARY TO R/O COVID; THEREFORE, PLACING CONDOM CATH WILL MINIMIZE DONNING AND DOFFING OF PPE, WELL FREQUENT EXPOSURE.
[2019-11-22 04:25] LABS: Hematocrit 27.1 % (37.0-53.0); Mean Corpuscular HGB 26.1 pg (26.0-34.0); Mean Corpuscular HGB Conc 29.5 g/dL (31.5-36.5); Mean Corpuscular Volume 88 fL (80-100); Mean Platelet Volume 9.9 fL (9.1-12.4); NRBC ABSOLUTE 0.88 K/mm3 (0.00-0.02); NRBC Auto 9.3 /100 WBC (0.0-0.2); Platelet Count 155 K/mm3 (150-400); RDW Standard Deviation 68.2 fL (35.1-46.3); Red Blood Cell Count 3.07 M/mm3 (4.30-5.90); White Blood Cell Count 9.48 K/mm3 (4.00-11.30)
[2019-11-22 04:43] LABS: Alanine Aminotransfer (ALT/SGP 91 U/L (12-78); Albumin, Blood 2.5 g/dL (3.4-5.0); Albumin/Globulin Ratio 0.9 (0.8-1.8); Alk Phos 116 U/L (50-136); Anion Gap 2 mmol/L (6-16); Aspartate Aminotrans (AST/SGOT 59 U/L (12-37); Bilirubin, Total 1.1 mg/dL (0.1-1.0); Blood Urea Nitrogen 11 mg/dL (8-24); Bun/Creatinine Ratio 15.3 (12.0-20.0); CO2, Blood 39 mmol/L (21-32); Calcium, Blood 8.2 mg/dL (8.5-10.1); Chloride, Blood 100 mmol/L (98-108); Creatinine, Blood 0.72 mg/dL (0.60-1.20); Globulin, Blood 2.9 g/dL (2.2-4.0); Glomerular Filtration Rate >60 (60-); Glucose, Blood 88 mg/dL (70-99); Magnesium, Blood 1.6 mg/dL (1.6-2.4); Potassium, Blood 3.3 mmol/L (3.5-5.5); Sodium, Blood 141 mmol/L (136-145); Total Protein, Blood 5.4 g/dL (6.4-8.2)
[2019-11-22 05:01] LABS: BAND PERCENT MAN 13 % (0-8); BASOPHILS PERCENT MAN 0 % (0-2); EOSINOPHILS ABSOLUTE MAN 0.09 K/mm3 (0.00-0.68); EOSINOPHILS PERCENT MAN 1 % (0-6); LYMPHOCYTES ABSOLUTE MAN 0.75 K/mm3 (0.84-5.20); LYMPHOCYTES PERCENT MAN 8 % (21-46); METAMYELOCYTE ABSOLUTE MAN 0.09 K/mm3 (0.00-0.00); METAMYELOCYTE PERCENT MAN 1 % (0-0); MONOCYTES ABSOLUTE MAN 0.47 K/mm3 (0.16-1.47); MONOCYTES PERCENT MAN 5 % (4-13); MYELOCYTE ABSOLUTE MAN 0.09 K/mm3 (0.00-0.00); MYELOCYTE PERCENT MAN 1 % (0-0); NEUTROPHILS ABSOLUTE MAN 7.96 K/mm3 (1.96-9.15); SEG NEUTROPHILS PERCENT MAN 71 % (41-73); TOTAL CELLS COUNTED 100
--- NOTE | 2019-11-22 05:26 | NUR ---
END OF SHIFT SUMMARY PT HAS BEEN AWAKE MOST OF SHIFT. ALERT AND ABLE TO COMMUNICATE NEEDS; HOWEVER, REMAINS CONFUSED AND FORGETFUL. PLACED CONDOM CATH AT BEGINNING OF SHIFT THAT STAYED ON UP UNTIL PT HAD A BLOW OUT OF A BOWEL MOVEMENT IN WHICH CONDOM CATH REQUIRED CHANGING OUT. PT HAS PROGRESSIVELY BECOME MORE CONFUSED AND DELIRIOUS THE NIGHT PROGRESSED; PULLED OFF NEWLY PLACED CONDOM CATH. ATTEMPTING TO PULL OFF BIOX PROBE AND HEART MONITOR CABLES AGAIN. REDIRECTED PT BY STATING HE NEEDED TO GET SOME SLEEP HE WAS BECOMING MORE CONFUSED. PT AGREED. REMOVED SCD'S AND TURNED OFF TELEVISION IN ORDER TO DECREASE STIMULI. PT IS NOW ASLEEP AND APPEARS TO BE RESTING COMFORTABLY. OXYGEN IS AT 2L VIA NC. PT HAS HAD TWO LOOSE STOOLS THIS SHIFT; XL IN SIZE, SOFT AND PASTY WITH A RUST COLOR. WHEN ASKED IF PT'S STOMACH WAS UPSET, HE WAS UNABLE TO ANSWER. JUST STATED HE GENERALLY DIDN'T FEEL WELL. ATTENDS MANAGEMENT AND SKIN CARE PROVIDED AFTER EACH INCONTINENT EPISODE. PT IS CURRENTLY IN A CLEAN ATTEND. WILL REQUIRE FREQUENT, TWO HOUR, ROUNDING D/T INCONTINENCE. CALL LIGHT WITHIN REACH; PT HAS BEEN ENCOURAGED TO USE WITH EVERY ENCOUNTER; HOWEVER, PT HAS NOT YET UTILIZED CALL LIGHT APPROPRIATELY. WILL CONTINUE TO MONITOR UNTIL REPORT IS HANDED OFF TO ONCOMING RN.
--- NOTE | 2019-11-22 06:20 | NUR ---
IMPULSIVE EPISODE BED ALARM NOTED TO BE GOING OFF. PT OBSERVED TO BE AT EDGE OF BED ATTEMPTING TO EXIT. PT ABLE TO FOLLOW VERBAL COMMANDS IN REGARDS TO WAITING FOR ASSIST IN ORDER TO DON PROPER PPE PRIOR TO ENTERING ROOM. PT STATED HE HAD TO "PEE". ASSISTED TO BEDSIDE COMMODE. BEDDING WAS NOTED TO BE WET AND PT'S BOTTOM DENTURES NOTED IN BEDDING. PT ASKED IF HE HAD HIS UPPER DENTURES IN PLACE IN WHICH HE RESPONDED, "NO". OBSERVED OTHER BEDDING AND DID NOT FIND UPPER DENTURES. AT BEGINNING OF SHIFT PT HAD BOTH UPPER AND LOWER DENTURES IN PLACE AND HAD REFUSED DENTURE/ORAL CARE. THEREFORE, UPPER DENTURES MAY HAVE BEEN LOST IF PT PLACED HIS UPPER DENTURES IN BEDDING DURING ONE OF THE MULTIPLE BED LINEN CHANGES THAT OCCURRED T/O SHIFT. PT ASSISTED BACK TO BED. VERY LABILE WITH VOIDING NEEDS. AT BEGINNING OF SHIFT NOTED TO BE INCONTINENT OF BLADDER X2, THEN A CONDOM CATH WAS PLACED AFTER PT FAILED TO UTILIZE URINAL AT BEDSIDE, WHICH LASTED MOST OF SHIFT. NOW PT IS AWARE OF TOILETING NEEDS AND ATTEMPTING TO GET OUT OF BED WITHOUT ASSIST. RESET BED ALARM, REMOVED FLUIDS FROM BEDSIDE. PT IS GETTING NS WITH KCL 20 MEQ AT 50MLS/HR. URINAL PLACED AT BEDSIDE AGAIN AND PT ENCOURAGED TO UTILIZE. MAY NEED ANOTHER ATTEMPT AT CONDOM CATH PLACEMENT; HOWEVER, PT MAY ALSO NEED A DOSE OF HALDOL D/T DELIRIOUS BEHAVIORS AND PULLING OFF CABLES AND PREVIOUS CONDOM CATH.
--- NOTE | 2019-11-22 16:23 | NUR ---
SUMMARY Pt medical floor status with telemetry. A&O x 2. Pt on 2 LPM NC for entire shift. SpO2 90% or greater. Pt OOB several times to use bedside commode. Pt impulsive. Has not been using call light. Bed alarm triggered several times t/o shift. Pt has refused breakfast and lunch. Pt did not sleep this shift- nor did he sleep during previous shift. Pt has urgency incontinence of bowel and bladder. Bed in lowest position. Call light in reach. Bed alarm on.
--- NOTE | 2019-11-22 19:00 | NUR ---
ASSUMED CARE NOTE: ASSUMED CARE OF PT AT 1900, RECEVIED REPORT FROM WATSON SANTANA. UPON ENTERING ROOM, PT WAS SITTING UP ON THE SIDE OF THE BED. PT IS ALERT AND ORIENTED TO SELF. PT IS ABLE TO FOLLOW DIRECTIONS. PT IS CONFUSED AND IMPULSIVE. PT IS ON 2L OF 02 VIA NC, WILL SPI2 AT 97%. PT IS HAVING OCCASIONAL BROWN/YELLOW SPUTUM. PT IS IN AFIB WITH HR BETWEEN 90-100. PT DENIES ANY PAIN AT THIS TIME. PT IS INCONTIENT OF BOWELS/URINE, ATTENDS IN PLACE. PT RECEVING NS/20mEqKCL @ 50ML/HR. BED AT LOWEST LEVEL, BED ALARM ON, CALL LIGHT WITHIN REACH.
--- NOTE | 2019-11-22 19:30 | NUR ---
UPDATE: BED CONTROLS ARE NOW LOCKED, DUE TO PT RAISING BED TO THE HIGHEST LEVEL. PT WAS LOWERED, AND BED ALARM WAS PUT IN PLACE.
--- NOTE | 2019-11-22 23:30 | NUR ---
PT ATTEMPTED TO JUMP OUT OF BED, ALARM WENT OFF. PT WAS SITTING AT THIS SIDE OF THE BED, AND BEGAN TO PEE OVER THE ROOM FLOOR. PT WAS THEN PLACED IN A CHAIR, BED WAS CLEANED AND FLOOR WAS MOPPED.
[2019-11-23 05:47] LABS: Hematocrit 30.1 % (37.0-53.0); Hemoglobin 8.6 g/dL (13.5-17.5); Mean Corpuscular HGB 25.8 pg (26.0-34.0); Mean Corpuscular HGB Conc 28.6 g/dL (31.5-36.5); Mean Corpuscular Volume 90 fL (80-100); Mean Platelet Volume 10.5 fL (9.1-12.4); NRBC ABSOLUTE 0.39 K/mm3 (0.00-0.02); NRBC Auto 4.6 /100 WBC (0.0-0.2); Platelet Count 162 K/mm3 (150-400); RDW Coefficient Variation 23.9 % (11.7-14.2); Red Blood Cell Count 3.33 M/mm3 (4.30-5.90); White Blood Cell Count 8.44 K/mm3 (4.00-11.30)
[2019-11-23 05:48] LABS: Albumin, Blood 2.6 g/dL (3.4-5.0); Anion Gap 1 mmol/L (6-16); Blood Urea Nitrogen 10 mg/dL (8-24); Bun/Creatinine Ratio 14.9 (12.0-20.0); CO2, Blood 39 mmol/L (21-32); Calcium, Blood 8.4 mg/dL (8.5-10.1); Chloride, Blood 101 mmol/L (98-108); Creatinine, Blood 0.67 mg/dL (0.60-1.20); Glomerular Filtration Rate >60 (60-); Glucose, Blood 85 mg/dL (70-99); Magnesium, Blood 1.7 mg/dL (1.6-2.4); Phosphorus, Blood 3.1 mg/dL (2.5-4.9); Potassium, Blood 3.9 mmol/L (3.5-5.5); Sodium, Blood 141 mmol/L (136-145)
--- NOTE | 2019-11-23 06:30 | NUR ---
SHIFT SUMMARY: NO SIGNIFICANT CHANGES THIS SHIFT. PT CONTINUES TO BE CONFUSED AND IMPULSIVE. PT IS ON 2L OF O2 VIA NC, WITH SPO2 ABOVE 90% PT HAS BEEN IN AFIB WITH HR BETWEEM 80-100. PT WAS ABLE TO SLEEP FOR TWO HOURS THIS SHIFT. PT HAS BEEN USING BSC, WITH ONE PERSON ASSISTANCE. URINE IS EDWINA IN COLOR. PT HAS NO COMPLAINTS. PT REPOSITIONS SELF IN BED. VITALS STABLE. WILL CONTINUE TO MONITOR PT UNTIL REPORT IS GIVEN TO ONCOMING SHIFT.
[2019-11-23 07:04] LABS: BASOPHILS PERCENT MAN 0 % (0-2); EOSINOPHILS ABSOLUTE MAN 0.16 K/mm3 (0.00-0.68); EOSINOPHILS PERCENT MAN 2 % (0-6); LYMPHOCYTES % ATYPICAL MANUAL 2 % (0-0); LYMPHOCYTES PERCENT MAN 4 % (21-46); METAMYELOCYTE ABSOLUTE MAN 0.08 K/mm3 (0.00-0.00); METAMYELOCYTE PERCENT MAN 1 % (0-0); MONOCYTES ABSOLUTE MAN 1.43 K/mm3 (0.16-1.47); MONOCYTES PERCENT MAN 17 % (4-13); MYELOCYTE ABSOLUTE MAN 0.33 K/mm3 (0.00-0.00); MYELOCYTE PERCENT MAN 4 % (0-0); SEG NEUTROPHILS PERCENT MAN 70 % (41-73); TOTAL CELLS COUNTED 100
--- NOTE | 2019-11-23 18:09 | NUR ---
SHIFT SUMMARY PT IS ALERT AND ORIENTED TO SELF. PT REMAINS IN A-FIB RATES 90'S-100'S. PT HAS HARSH PRODUCTIVE COUGH AND REMAINS ON 2L OF O2 VIA NC. ATTEMPTED TO WEAN O2, HOWEVER PT DROP THEIR SATS WITH ACTIVITY OR WHEN ASLEEP. OTHER VITALS REMAIN STABLE. PT IS ABLE TO USE BSC WITH SBA, OCCASIONALLY INCONTINENT OF URINE WHEN URGENTLY NEEDS TO VOID.
--- NOTE | 2019-11-23 22:00 | NUR ---
ASSUMPTION OF CARE ASSUMED CARE OF PT @ 1900, PT ALERT AND ORIENTED TO SELF, PLACE AND FOLLOWING DIRECTIONS, UNSURE OF DATE AND EVENT. PT ON 2L PER NC, INCREASED TO 3L TO MAINTAIN O2 SATURATIONS> 90%, PT WITH WEAK COUGH, ABLE TO PRODUCE THICK YELLOW SPUTUM WITH ENCOURAGEMENT, FLUTTER VALVE AT BEDSIDE. MONITOR SHOWS AFIB WITH HR 80'S-90'S, BP STABLE. PT INCONTINENT OF URINE, ATTENDS IN PLACE, UP TO BSC WITH SBA, PT IMPULSIVE AND ATTEMPTS TO GET OUT OF BED WITHOUT ASSISTANCE, BED ALARM IN PLACE, CALL LIGHT WITHIN REACH, PT INSTRUCTED SURVEY RESEARCH PROFESSOR LIGHT BUT DOES NOT USE. PT TOLERATES PO INTAKE, SWALLOWS PILLS WHOLE.
--- NOTE | 2019-11-24 01:10 | NUR ---
PT REMAINS ORIENTED TO SELF, LOCATION AND FOLLOWING DIRECTIONS, POSSIBLY CONFUSED, PT MAKING STATEMENTS ABOUT DIFFICULTY SLEEPING DUE TO THE "BEES AND WASPS". ASSISTED PT IN BED AND ENCOURAGED REST.
--- NOTE | 2019-11-24 02:37 | NUR ---
PT WITH LEGS OVER BEDSIDE, LAYING IN BED, CONFUSED, PLACING O2 PROBE IN MOUTH, STS HE IS TRYING TO TAKE A DRINK OF WATER. WATER PROVIDED, PT REPOSITIONED IN BED FOR COMFORT, DENTURES REMOVED FROM MOUTH AND PLACED IN CUP AT BEDSIDE. ENCOURAGED REST. BED ALARM ON, CALL LIGHT WITHIN REACH.
--- NOTE | 2019-11-24 06:17 | NUR ---
SHIFT SUMMARY NO ACUTE CHANGES THIS SHIFT. PT REMAINS ORIENTED TO SELF, LOCATION AND FOLLOWING DIRECTIONS, SOME CONFUSION THROUGH THE NIGHT WITH MILD AGITATION, EASILY REDIRECTABLE. PT REMAINS ON 2L PER NC TO MAINTAIN O2 SATURATIONS> 90%. MONITOR SHOWS AFIB, HR 70'S-80'S, BP STABLE. PT WITH FREQUENT INCONTINENT VOIDS T/O SHIFT, CONDOM CATH PLACED. REDDENED AREA TO SACRUM/BUTTOCKS, PHOTO TAKEN, MEPILEX APPLIED. PT SBA TO BSC, INCREASED DIFFICULTY WITH SIT TO STAND.
--- NOTE | 2019-11-24 09:45 | NUR ---
CARE ASSUMED/PROVIDER COMMUNICATION REPORT RECEIVED, CARE ASSUMED FROM MAX STEWART AT 0700. PT RESTING QUIETLY ON ROUNDS. PT EXTREMELY SLEEPY, AROUSES WITH MULTIPLE ATTEMPTS BUT UNABLE TO KEEP PATIENT AWAKE EVEN AFTER ASSISTING PATIENT TO DO ADL'S. PT TOOK A FEW SIPS OF WATER AND ORANGE JUICE FROM HIS TRAY, BUT STARTS COUGHING IMMEDIATELY AFTER DRINKING. ASKED PT IF HE FEELS LIKE HE IS CHOKING ON HIS WATER AND PT SAYS, "YES." ASSISTED PT TO DANGLE TO SIDE OF BED AND PT MAX ASSIST, FALLING ASLEEP. ASSISTED BACK TO BED. MEDS HELD. DR. ROSE TO BEDSIDE FOR ASSESSMENT. UPDATED ON EVENTS OF MORNING.
--- NOTE | 2019-11-24 10:19 | NUR ---
UPDATE PT ASSESSED BY DR. ROSE. ORDER TO KEEP PATIENT NPO, HAVE SPEECH EVALUATE AND TREAT PATIENT ONCE PT MORE AWAKE AND ABLE TO PARTICIPATE. ALSO ADDED PHYSICAL THERAPY AND OCCUPATIONAL THERAPY. DR. ROSE CONFIRMED WITH PATIENT THAT HE DOES NOT WANT TUBE FEEDING IF IT WAS NEEDED. PER DR. ROSE, HE WILL REACH OUT TO FAMILY TO DISCUSS PLAN OF CARE.
--- NOTE | 2019-11-24 16:07 | NUR ---
UPDATE PT NOTED TO HAVE INCREASED SWELLING TO LEFT ARM. ARM BANDS REMOVED DUE TO SWELLING. 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 ASKED PT IF HE HAS HAD CHALLENGES WITH LEFT ARM IN THE PAST AND PT SAYS, "SOMETIMES." PT ABLE TO USE ARM, BUT WHEN MOVED AROUND FOR REPOSITIONING BY STAFF ARM SEEMS FLACCID, MUSCLES ARE NOT TENSE IN ARM WHEN MOVED IN THE OTHER ARM. UPDATED DR. ROSE ON SWELLING IN ARM. ASSESSMENT UNCHANGED OF STRENGTH SINCE DR. ROSE ASSESSED THIS MORNING. PER DR. ROSE, ELEVATED LEFT ARM, NO IV'S TO LEFT ARM, AND CONTINUE TO MONITOR.
[2019-11-24 17:06] LABS: Hematocrit 28.9 % (37.0-53.0); Hemoglobin 8.2 g/dL (13.5-17.5); Mean Corpuscular HGB 26.5 pg (26.0-34.0); Mean Corpuscular HGB Conc 28.4 g/dL (31.5-36.5); NRBC ABSOLUTE 0.09 K/mm3 (0.00-0.02); NRBC Auto 1.3 /100 WBC (0.0-0.2); Platelet Count 119 K/mm3 (150-400); RDW Coefficient Variation 26.1 % (11.7-14.2); RDW Standard Deviation 73.3 fL (35.1-46.3); Red Blood Cell Count 3.09 M/mm3 (4.30-5.90); White Blood Cell Count 7.09 K/mm3 (4.00-11.30)
[2019-11-24 17:13] LABS: Mean Corpuscular Volume 94 fL (80-100); Mean Platelet Volume 10.6 fL (9.1-12.4)
[2019-11-24 17:20] LABS: Anion Gap 1 mmol/L (6-16); Blood Urea Nitrogen 9 mg/dL (8-24); Bun/Creatinine Ratio 14.3 (12.0-20.0); CO2, Blood 39 mmol/L (21-32); Calcium, Blood 8.7 mg/dL (8.5-10.1); Chloride, Blood 99 mmol/L (98-108); Creatinine, Blood 0.63 mg/dL (0.60-1.20); Glomerular Filtration Rate >60 (60-); Glucose, Blood 83 mg/dL (70-99); Potassium, Blood 4.9 mmol/L (3.5-5.5); Sodium, Blood 139 mmol/L (136-145)
[2019-11-24 17:47] LABS: BAND PERCENT MAN 1 % (0-8); BASOPHILS ABSOLUTE MAN 0.07 K/mm3 (0.00-0.23); BASOPHILS PERCENT MAN 1 % (0-2); EOSINOPHILS ABSOLUTE MAN 0.14 K/mm3 (0.00-0.68); EOSINOPHILS PERCENT MAN 2 % (0-6); LYMPHOCYTES ABSOLUTE MAN 0.56 K/mm3 (0.84-5.20); LYMPHOCYTES PERCENT MAN 8 % (21-46); METAMYELOCYTE ABSOLUTE MAN 0.07 K/mm3 (0.00-0.00); METAMYELOCYTE PERCENT MAN 1 % (0-0); MONOCYTES ABSOLUTE MAN 0.35 K/mm3 (0.16-1.47); MONOCYTES PERCENT MAN 5 % (4-13); MYELOCYTE ABSOLUTE MAN 0.56 K/mm3 (0.00-0.00); MYELOCYTE PERCENT MAN 8 % (0-0); NEUTROPHILS ABSOLUTE MAN 5.31 K/mm3 (1.96-9.15); SEG NEUTROPHILS PERCENT MAN 74 % (41-73); TOTAL CELLS COUNTED 100
--- NOTE | 2019-11-24 18:23 | NUR ---
SUMMARY THROUGHOUT DAY, PT HAS CONTINUED TO BE WEAK, WITHDRAWN AND MINIMALLY INTERACTIVE WITH CARE. HE HAS PROGRESSIVELY GOTTEN STRONGER AND MORE ABLE TO PARTICIPATE IN ADL'S, BUT HAVING DIFFICULTY EXPRESSING NEEDS. WHEN ASKED ABOUT VARIOUS NEEDS, PT REPLES, "I DON'T KNOW." PROVIDED PT WITH REPOSITIONING AND WHEN ASKED IF COMFORTABLE, PT REPLIES "YES." VITALS HAVE BEEN STABLE. PT CONTINUES TO REQUIRE 2 LPM NASAL CANNULA. ATTEMPTED TO TITRATE MULTIPLE TIMES AND PT'S SPO2 DROPS TO THE MID 80'S. PT CONTINUES TO HAVE DRY, BARKING COUGH WITH NO SPUTUM PRODUCTION. ABLE TO PRACTICE COUGH AND DEEP BREATH WHEN DIRECTED. INCENTIVE SPIROMETER AT BEDSIDE, BUT PT UNINTERESTED IN EDUCATION. PT HAS HAD MULTIPLE INCONTINENT URINES, SO CONDOM CATH PLACED BACK ON PATIENT. NO BOWEL MOVEMENT THIS SHIFT. PT CONTINUES TO BE NPO UNTIL ABLE TO PARTICIPATE IN SPEECH EVALUATION. CLINIMIX STARTED THIS EVENING.
--- NOTE | 2019-11-24 19:28 | NUR ---
REPORT TO MAX SCHUMACHER TO ASSUME CARE
--- NOTE | 2019-11-24 21:50 | NUR ---
REPORT RECIEVED FROM OFF GOING RN BON. RESTS QUIETLY WHEN UNDISTURBED AWAKENS TO VERBAL STIMULI. MONITOR INTACT SHOWING A FIB HEART RATE 70'S-80'S. STATES "I'VE HEAD A REALLY LOUSLY DAY" UNABLE TO VERBALIZE WHY THE DAY WAS "LOUSLY" LUNG SOUNDS CLEAR UPPER LOBES WITH DECREASED SOUNDS IN THE BASES. RESPIRATIONS REGULAR AND EASY NEEDS FREQUENT REMINDERS TO LEAVE O2 IN PLACE DESATURATES WHEN REMOVES QUICKLY. ABDOMEN SOFT WITH BOWEL SOUNDS FOUR QUADS. CONDOM CATH INTACT DRAINING DARK EDWINA URINE. PAS TO LOWER EXTREMITIES. PEDAL PULSES PRESENT. MOD AMT GENERALIZED DEPENDENT EDEMA. CONTINUE TO MONITOR AND REPORT CHANGE IN PATIENT CONDITION.
--- NOTE | 2019-11-25 00:15 | NUR ---
CONDOM CATH FOOUND AT FOOT OF BED ,INCONTINENT OF URINE. LINEN CHANGED AND PATIENT REPOSITIONED DILMA CARE GIVEN. CONTINUE TO MONITOR AND REPORT CHANGE IN PATIENT CONDITION.
--- NOTE | 2019-11-25 02:30 | NUR ---
INCONTINENT REPOSITIONED PARTIAL BATH LINEN CHANGED. LAB OBTAINED. MEDICATED WITH 2MG IV ATIVAN. BIPAP MASK REPOSITIONED. CONTINUE TO MOONITOR AND REPORT CHANGE IN PATIENT CONDITION.
[2019-11-25 04:11] LABS: BASOPHILS ABSOLUTE AUTO 0.03 K/mm3 (0.00-0.23); BASOPHILS PERCENT AUTO 0 % (0-2); EOSINOPHILS ABSOLUTE AUTO 0.15 K/mm3 (0.00-0.68); EOSINOPHILS PERCENT AUTO 2 % (0-6); Hematocrit 29.5 % (37.0-53.0); Hemoglobin 8.2 g/dL (13.5-17.5); IMMATURE GRAN ABSOLUTE AUTO 0.65 K/mm3 (0.00-0.10); IMMATURE GRAN PERCENT AUTO 8 % (0-1); LYMPHOCYTES PERCENT AUTO 12 % (21-46); MONOCYTES ABSOLUTE AUTO 1.27 K/mm3 (0.16-1.47); MONOCYTES PERCENT AUTO 16 % (4-13); Mean Corpuscular HGB 26.3 pg (26.0-34.0); Mean Corpuscular HGB Conc 27.8 g/dL (31.5-36.5); Mean Corpuscular Volume 95 fL (80-100); Mean Platelet Volume 10.7 fL (9.1-12.4); NEUTROPHILS ABSOLUTE AUTO 4.85 K/mm3 (1.96-9.15); NEUTROPHILS PERCENT AUTO 62 % (41-73); NRBC ABSOLUTE 0.08 K/mm3 (0.00-0.02); Platelet Count 145 K/mm3 (150-400); RDW Coefficient Variation 26.7 % (11.7-14.2); RDW Standard Deviation 73.6 fL (35.1-46.3); Red Blood Cell Count 3.12 M/mm3 (4.30-5.90); White Blood Cell Count 7.85 K/mm3 (4.00-11.30)
[2019-11-25 04:32] LABS: Alanine Aminotransfer (ALT/SGP 61 U/L (12-78); Albumin, Blood 2.4 g/dL (3.4-5.0); Albumin/Globulin Ratio 0.8 (0.8-1.8); Alk Phos 99 U/L (50-136); Anion Gap 0 mmol/L (6-16); Aspartate Aminotrans (AST/SGOT 40 U/L (12-37); Bilirubin, Total 0.8 mg/dL (0.1-1.0); Blood Urea Nitrogen 10 mg/dL (8-24); Bun/Creatinine Ratio 15.8 (12.0-20.0); CO2, Blood 40 mmol/L (21-32); Calcium, Blood 8.8 mg/dL (8.5-10.1); Chloride, Blood 99 mmol/L (98-108); Creatinine, Blood 0.63 mg/dL (0.60-1.20); Glomerular Filtration Rate >60 (60-); Glucose, Blood 97 mg/dL (70-99); Magnesium, Blood 1.8 mg/dL (1.6-2.4); Phosphorus, Blood 3.3 mg/dL (2.5-4.9); Potassium, Blood 3.8 mmol/L (3.5-5.5); Sodium, Blood 139 mmol/L (136-145); Total Protein, Blood 5.4 g/dL (6.4-8.2)
[2019-11-25 04:35] LABS: BAND PERCENT MAN 4 % (0-8); BASOPHILS PERCENT MAN 0 % (0-2); EOSINOPHILS ABSOLUTE MAN 0.07 K/mm3 (0.00-0.68); EOSINOPHILS PERCENT MAN 1 % (0-6); LYMPHOCYTES ABSOLUTE MAN 0.78 K/mm3 (0.84-5.20); LYMPHOCYTES PERCENT MAN 10 % (21-46); METAMYELOCYTE ABSOLUTE MAN 0.15 K/mm3 (0.00-0.00); METAMYELOCYTE PERCENT MAN 2 % (0-0); MONOCYTES ABSOLUTE MAN 0.54 K/mm3 (0.16-1.47); MONOCYTES PERCENT MAN 7 % (4-13); MYELOCYTE ABSOLUTE MAN 0.15 K/mm3 (0.00-0.00); MYELOCYTE PERCENT MAN 2 % (0-0); NEUTROPHILS ABSOLUTE MAN 6.12 K/mm3 (1.96-9.15); SEG NEUTROPHILS PERCENT MAN 74 % (41-73); TOTAL CELLS COUNTED 100
--- NOTE | 2019-11-25 06:47 | NUR ---
SHIFT SUMMARYA; RESTS QUIETLY WHEN UNDISTURBED. MONITOR INTACT SHOWING A FIB. HEART RATE 70'S-90'S IMPULSIVE WHEN AWAKE NEEDS FREQUENT REIMNDERS TO LEAVE O2 IN NARES. SPO2 WITH 2L/MIN [phone] DESATURATES QUICKLY WHEN O2 IN NOT IN PLACE. ABDOMEN SOFT WITH BOWEL SOUNDS FOUR QUADS. CONDOM CATH IN PLACE DRAINING DARK EDWINA URINE. PAS TO LOWER EXTREMITIES. RAMIREZ WELL IN BED. CONTINUE TO MONITOR AND REPORT CHANGE IN PATIENT CONDITION.
--- NOTE | 2019-11-25 08:00 | NUR ---
CARE ASSUMED REPORT RECEIVED, CARE ASSUMED AT 0700 FROM MAX SCHUMACHER. PT AWAKE IN BED ON ROUNDS, REACHING UP ATTEMPTING TO GET UP. ASSISTED PT TO CHAIR. PT TOLERATED WELL WITH ONE PERSON ASSIST AND USE OF FRONT WHEEL WALKER. PT INCONTINENT OF BOWEL DURING TRANSFER. PT FRUSTRATED SAYING, "I NEED TO PEE RIGHT NOW." REMINDED OF CONDOM CATH IN PLACE. PT URINATED IN CONDOM CATH WHEN REMINDED. SETUP ASSIST TO WASH FACE AND BRUSH TEETH. PT VERY SHORT OF BREATH, REQUIRES LOTS OF BREAKS TO COMPLETE TASKS. PT BECOMES FRUSTRATED DUE TO FATIGUE. ORIENTED TO SELF ONLY. PT HAVING DIFFICULTY EXPRESSING NEEDS DUE TO SHORTNESS OF BREATH AND FATIGUE. REQUESTS WATER. EDUCATED REGARDING PENDING SWALLOW EVALUATION. PT SITUATED AND DECLINES FURTHER NEEDS. BP/HR ELEVATED, LIKELY RELATED TO PT NOT TAKING ORAL MEDICATIONS YESTERDAY. AFEBRILE. 02 SAT 90'S ON 2 LPM NASAL CANNULA. DROPPED TO MID 80'S WITH ACTIVITY.
--- NOTE | 2019-11-25 08:37 | NUR ---
SWALLOW EVALUATION SPOKE WITH RACH IN SPEECH THERAPY, SAYS SHE WILL SEE PATIENT THIS MORNING FOR SWALLOW EVALUATION.
--- NOTE | 2019-11-25 08:40 | NUR ---
DR. ROSE COMMUNICATION SPOKE WITH DR. ROSE REGARDING PT'S ELEVATED BP AND HR RELATED TO NOT BEING ABLE TO TAKE ORAL MEDICATIONS. NO NEW ORDERS AT THIS TIME, PER DR. ROSE, HE WILL BE BY FOR ASSESSMENT LATER THIS MORNING.
--- NOTE | 2019-11-25 10:30 | NUR ---
UPDATE SINCE GETTING TO CHAIR, PT CONFUSED, PULLING OFF CORDS/LINES AND OXYGEN REGARDLESS OF FREQUENT ROUNDING. PT CONSISTENTLY DENIES PAIN/DISCOMFORT, REPOSITIONING, OR NEEDS. WHEN STAFF ATTEMPT TO PUT OXYGEN BACK ON AFTER PT PULLS OFF, PT BECOMES AGITATED AND BECOMES AGITATED TOWARDS STAFF. REDIRECTABLE. EVENTUALLY ABLE TO GET PT'S OXYGEN BACK IN PLACE. PROVIDED WITH DIVERSIONAL ACTIVITIES INCLUDING BLINDS OPEN AND TELEVISION ON. PT REQUIRING CONTINUOUS REMINDERS REGARDING MEDICAL EQUIPTMENT. STAFF NEARBY AT ALL TIMES REMINDING PT FREQUENTLY.
--- NOTE | 2019-11-25 10:52 | NUR ---
DR. ROSE TO BEDSIDE DR. ROSE TO BEDSIDE FOR ASSESSMENT. DR. ROSE DISCUSSED OPTIONS REGARDING CURRENT PLAN OF CARE VERSES COMFORT MEASURES WITH PATIENT. PT UNSURE AT THIS TIME, CONTINUE WITH CURRENT PLAN OF CARE. HENNY IN PALLIATIVE CARE NOTIFIED UPDATED.
--- NOTE | 2019-11-25 11:25 | NUR ---
PALLIATIVE CARE COMMUNICATION HENNY FROM PALLIATIVE CARE SPOKE WITH PT'S SON, WHO IS REQUESTING PT BE PLACED ON COMFORT CARE AND TO TAKE HIM HOME. HNENY IN PALLIATIVE CARE TO CALL DR. ROSE.
--- NOTE | 2019-11-25 11:44 | NUR ---
FAMILY COMMUNICATION PT'S SON AND DAUGHTER IN [place] CALLED REQUESTING TO SPEAK WITH NURSE AND WITH PATIENT. PROVIDED WITH UPDATE AND TRANSFERRED CALL INTO ROOM. AZEEM CHOE AT BEDSIDE ASSISTING PATIENT TO SPEAK WITH FAMILY.
--- NOTE | 2019-11-25 12:00 | NUR ---
COMFORT CARE ASSESSMENT NOTE PT RESTING IN BED WITH EYES CLOSED, LEGS CROSSED, AND HEAD RESTING ON PILLOW. DENIES PAIN OR DISCOMFORT. OXYGEN IN PLACE FOR SHORTNESS OF BREATH.
--- NOTE | 2019-11-25 15:12 | NUR ---
APPROVED VISITOR PT REFUSING TO WEAR OXYGEN. DECLINES REPOSITIONING. DENIES PAIN/DISCOMFORT. PER HENNY, TEMPLATE REPRODUCTION TECHNICIAN PT OK TO HAVE ONE VISITOR. UPDATED PT'S SON, AURORA. PER AURORA, HE WILL BE THE DESIGNATED VISITOR FOR HIS FATHER. UPDATED NURSING MEMBERSHIP SECRETARY, WALE OF APPROVED VISITOR.
--- NOTE | 2019-11-25 17:13 | NUR ---
Initial spiritual care note: Mr. Hawley appears weak and confused. He was also pleasant and appeared to enjoy companionship/encouragement. He could not tell me where he was or why. He could not name a family member or what he did for a living. He did hold my hand tightly while I spoke to him, and looked me in the eyes. He even smiled twice. Mr. Hawley denied pain/anxiety/concerns, and he appears well cared-for by nursing. He is non-hoahaoism, but allowed a prayer. I will remain available.
--- NOTE | 2019-11-25 19:19 | NUR ---
SUMMARY PT MEDICATED WITH MORPHINE AND ATIVAN INDICATED. PT'S SON AT BEDSIDE FOR A FEW HOURS THIS AFTERNOON, PROVIDING SUPPORT TO PATIENT. PT'S SON WENT HOME APPROX 1830. PREPARED PT'S SON THAT PT IS DECLINING QUICKLY, HE IS NOW NOT RESPONDING PURPOSEFULLY, REACHING FOR THINGS THAT AREN'T PRESENT, MUMBLING INCOHERENTLY, AND BREATHING IS LABORED. PT'S SON AURORA VERBALIZES UNDERSTANDING. TEARFUL, BUT DECLINES FURTHER QUESTIONS OR NEEDS. JOSE ENRIQUE LIMON NOTIFIED OF PT'S SECRETIONS. NEW ORDER FOR ATROPINE.
--- NOTE | 2019-11-25 19:33 | NUR ---
REPORT GIVEN TO MAX YEE AND NANCY RN TO ASSUME CARE
--- NOTE | 2019-11-25 20:02 | NUR ---
ASSUMED CARE AT 1900 FROM BON SANTANA. PT BREATHING RAGGED, ROXINAL GIVEN. THERAPEUTIC TOUCH AND HELD PT'S HAND WHILE PT CALMED. CARE CHANNEL IS ON. NO SECRETIONS TO MANAGE. PT'S BRIEF CHANGED.
--- NOTE | 2019-11-25 22:57 | NUR ---
ROUNDED ON PT AT 2243 PT TOOK LAST BREATH, THEN STOPPED BREATHING. STAYED IN ROOM LISTENING FOR HEART SOUNDS, NONE HEARD. NANCY RN CAME IN AND LISTENED. SON AT BEDSIDE AWARE, TEARFUL. SON INFORMING HIS , STATES ARRANGEMENTS ALREADY MADE.
== END 2019-11-25 22:43 | DRG 811 ==
LOC: ER 10:57 → ICUE 13:51 → PCU 13:51 → ICUE 16:39
PROVIDERS: Emergency Medicine; Family Medicine; Internal Medicine Critical Care Medicine; Internal Medicine Gastroenterology; Internal Medicine Hematology & Oncology; Student in an Organized Health Care Education/Training Program; ADMIT Family Medicine
PROC: 8E0ZXY6 Isolation (ICD-10-PCS; principal; 2019-11-17)
DX: D62 Acute posthemorrhagic anemia (principal); J14 Pneumonia due to Hemophilus influenzae; G92 Toxic encephalopathy; J96.01 Acute respiratory failure with hypoxia; E44.0 Moderate protein-calorie malnutrition; Z51.5 Encounter for palliative care; Z87.891 Personal history of nicotine dependence; I71.4 Abdominal aortic aneurysm, without rupture; Z86.73 Personal history of transient ischemic attack (TIA), and cerebral infarction without residual deficits; I10 Essential (primary) hypertension; E87.6 Hypokalemia; Z66 Do not resuscitate; E83.39 Other disorders of phosphorus metabolism; D50.9 Iron deficiency anemia, unspecified; I27.20 Pulmonary hypertension, unspecified; I08.1 Rheumatic disorders of both mitral and tricuspid valves
CPT/HCPCS: 0099U; 36415; 36430; 36600; 51702; 71045; 76705; 80048; 80053; 80069; 80074; 81001; 82248; 82270; 82728; 82803; 82947; 83010; 83540; 83550; 83605; 83615; 83735; 83880; 84100; 84145; 84484; 85014; 85018; 85025; 85045; 85060; 85610; 86850; 86880; 86900; 86901; 86923; 87040; 87070; 87077; 87185; 87205; 92610; 93005; 93010; 93306; 94640; 94760; 96361; 96365; 96366; 96375; 97162; 97166; 97530; 99285-25; A9270; A9270-GY; C1751; J0696; J1630; J1940; J1956; J2060; J2916; J2930; J3480; J7030; J7050; P9016; P9046; U0002